=== PATIENT | male | born 1985 | race Caucasian/White ===

== ENCOUNTER 2022-11-10 07:56 | Observation (INO) ==
--- NOTE | 2022-10-16 14:22 | PAT Medication Instructions ---
Medication Instructions Date of Service October 16, 2022 Home Medications hydrocodone 5 mg-acetaminophen 325 mg tablet 1 tab PO Q6H PRN Take morning of surgery With a small sip of water, OTHERWISE NOTHING TO EAT OR DRINK AFTER MIDNIGHT: hydrocodone 5 mg-acetaminophen 325 mg tablet 1 tab PO Q6H PRN(if needed) Take evening before surgery hydrocodone 5 mg-acetaminophen 325 mg tablet 1 tab PO Q6H PRN(if needed) Other Notes If you have any questions please call us at [phone] or [phone] or [phone] or [phone]
--- NOTE | 2022-10-22 11:42 | Anesthesiology Consultation ---
Date of Service October 22, 2022 Assessment & Plan (1) Encounter for pre-operative examination: Chart Review Chart Review: Acceptable Risk for Surgery (pending PCP clearance 10/27/22 ) and Patient seen in Pre Admission Testing -Awaiting PCP clearance scheduled 10/27/22 (optimization note needs faxed to PCP regarding elevated bilirubin) Per PAT appt on 10/21/22, patient denies any recent travel or large group activities. Pt is NOT vaccinated for Covid. Will leave to surgeon's discretion if preop Covid testing needed. Educated on importance of using Covid precautions one week prior to surgery History Surgery Operation Date: 11/10/22 09:35 Proposed Procedures p C5-C7 Anterior Cervical Discectomy and Fusion with Possible C6 Corpectomy, Spinal cord Monitoring - Omar Baxter DO Height/Weight Height: 5 ft 7 in Weight: 98.6 kg Allergies Allergy/AdvReac Type Severity Reaction Status Date / Time Penicillins Allergy Severe HIVES, RASH Verified 10/16/22 11:35 adhesive Allergy Mild skin Verified 10/16/22 11:36 irritation nickel AdvReac Intermediate skin Verified 10/16/22 11:36 irritation Medications Home Medications Medication Instructions Recorded Confirmed Last Taken hydrocodone 5 mg-acetaminophen 325 1 tab PO Q6H PRN Pain 10/16/22 10/16/22 U nknown mg tablet Past Medical History Medical History (Updated 10/22/22 @ 19:23 by Marie Muller PA-C) Chronic back pain Degenerative disc disease Elevated liver enzymes 2004- hx of elevated LFTs and bilirubin Preop labs 10/22/22- show LFTs WNL; total bilirubin 2.2 Esophageal erosions - Hx --> ~- secondary to heartburn - has improved significantly with dietary changes- takes Rolaid PRN (improves heartburn). - No issues since that time- no repeat scope needed per patient History of COVID-27 June 2022. 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)- no residual issues per patient (occurred secon perry to viral infection) Lumbar stenosis (12/01/13) Mild heartburn Diet controlled Exercise / Class Metabolic Activity II 4-5 Yardwork/Stairs/Walk up hill (one flight of stairs - no chest pain or SOB ) Past Family History Family History Other No family history of adverse response to anesthesia Past Surgical History Surgical History History of cholecystectomy History of esophagogastroduodenoscopy (EGD) History of tonsillectomy History of tooth extraction Hx of microdiscectomy x2 lumbar S/P epidural steroid injection lumbar and cervical S/P lumbar fusion L5-S1 S/P shoulder surgery right bankart repair S/P shoulder surgery right shoulder reconstruction S/P tendon repair right bicep tendon repair Past Anesthesia History No Hx of Anesthesia Complications and No Family Hx of Anesthesia Complications History of PONV No Hx of PONV and No Hx of Motion Sickness STOP BANG Total 3 Social History Smoking Status: Current every day smoker tobacco type: cigarettes Smoking cigarettes per day: 20cig/day (trying to quit) Do You Dip or Chew Tobacco: No Hx Alcohol Use: Yes Alcohol type: beer and hard liquor alcohol intake frequency: holidays/special occasions only Hx Substance Use: Yes substance use type: marijuana Last Used Substance Other:: 10/12/22 Review of Systems Patient denies chest pain, shortness of breath, dyspnea on exertion, cough, wheezing, palpitations. No hx of seizures, stroke, [place], apnea/snoring. No hx of blood clots or blood transfusions Physical Exam Vital Signs VITALS BP 127/79 P 76 TEMP 98.6 SP02 98% RESP 16 Constitutional no acute distress ENMT Mouth: no TMJ clicking Thyromental Distance: > or= 3.5 Finger Breadths (3.5) Mallampati Class: I Full dentures top and bottom Neck neck extension not limited Tilts head to the left due to neck Respiratory normal respiratory effort; no respiratory distress Auscultation: lungs clear to auscultation bilaterally; no wheezes Cardiovascular Rate/Rhythm: regular rate and regular rhythm Heart Sounds: no murmur Vessels: no carotid bruit Musculoskeletal Spine: + pain with cervical ROM Extremities: extremities normal to inspection Psychiatric Orientation: alert Lab Results Anesthesia Preop Results Results Anesthesia Widget: WBC 6.84 K/ul (4.8-10.8) 10/22/22 Hgb 18.6 g/dl (14.0-18.0) H 10/22/22 Hct 52.2 % (40.1-51.0) H 10/22/22 Plt 266 K/uL (130-400) 10/22/22 Na 137 mmol/L (136-145) 10/22/22 K 3.9 mmol/L (3.5-5.1) 10/22/22 Cl 106 mmol/L (98-107) 10/22/22 CO2 22 mmol/L (21-32) 10/22/22 BUN 11 mg/dl (6-23) 10/22/22 Creat 1.01 mg/dl (0.6-1.4) 10/22/22 Glucose Level 94 mg/dl (70-99(Fasting)) 10/22/22 PT 10.6 Seconds (9.0-12.0) 10/22/22 PTT 30.2 Seconds (21.0-31.0) 10/22/22 INR 1.0 (0.9-1.1) 10/22/22 Urine Color Yellow 10/22/22 Urine Appearance Clear (Clear) 10/22/22 Urine pH 5.0 (4.5-7.5) 10/22/22 Urine Specific [facility] 1.007 (1.000-1.030) 10/22/22 Urine Protein Negative (Negative) 10/22/22 Urine Glucose (UA) Negative (Negative) 10/22/22 Urine Ketones Negative (Negative) 10/22/22 Urine Blood Negative (Negative) 10/22/22 Urine Nitrite Negative (Negative) 10/22/22 Urine Bilirubin Negative (Negative) 10/22/22 Urine Urobilinogen Negative (Negative) 10/22/22 Urine Leukocyte Esterase Negative (Negative) 10/22/22 Blood Type O Positive 10/22/22 Antibody Screen NEGATIVE 10/22/22 Testing Laboratory Results 10/22/22= AST: 15 ALT: 21 ALK PHOS: 62 TOTAL BILI: 2.2 Electrocardiogram Date: 10/22/22 NSR with sinus arrhythmia at 68bpm. Chest X-Ray Date: 10/22/22 Findings: + NAD
[~2022-11-10 07:56] MED LIST: ACETAMINOPHEN 500 MG TAB PO SCH; CLINDAMYCIN/D5W 900 MG/50 ML BAG IV SCH; CeleBREX 200 MG CAP PO SCH; GABAPENTIN 900 MG DOSE PO SCH; LR 15ML/HR IV SCH
[2022-11-10] MEDS ORDERED: MIDAZOLAM HCL 1 MG/ML 2ML VIAL ONE (08:37)
[2022-11-10] MEDS ORDERED: fentaNYL citrate 100 MCG/2 ML VIAL ONE ×2 (08:37→09:47)
[2022-11-10] MEDS ORDERED: ONDANSETRON INJ 2 MG/ML 2 ML VIAL IV PRN (09:07)
[2022-11-10] MEDS ORDERED: ATROPINE SULFATE 0.1 MG/ML 10ML SYR IV PRN (09:07)
[2022-11-10] MEDS ORDERED: ePHEDrine sulfate 50 MG/ML AMP IV PRN (09:07)
[2022-11-10] MEDS ORDERED: HYDROmorphone INJ 2 MG/ML SYR/VIAL IV PRN (09:07)
--- NOTE | 2022-11-10 09:15 | History & Physical Bridge Note ---
Date of Service November 10, 2022 History & Physical Bridge Note I have examined the patient, reviewed the History & Physical and in the interval since the performance of the History & Physical I have noted the following changes of clinical significance: no changes noted
--- NOTE | 2022-11-10 09:16 | History & Physical Report ---
Date of Service November 10, 2022 Assessment & Plan (1) Herniation of cervical intervertebral disc with radiculopathy: Plan: Anterior cervical discectomy and fusion C5-C7 with possible C6 corpectomy History of Present Illness Chief Complaint: Neck and arm pain Primary Care Provider: Gisel Trinidad This is a 37-year-old male presents with chronic persistent neck and arm pain after failed course of nonoperative care is here for surgical intervention. Allergies Allergy/AdvReac Type Severity Reaction Status Date / Time Penicillins Allergy Severe HIVES, RASH Verified 11/10/22 08:35 adhesive Allergy Mild skin Verified 11/10/22 08:35 irritation nickel AdvReac Intermediate skin Verified 11/10/22 08:35 irritation Home Medications Medication Instructions Recorded Confirmed Type hydrocodone 5 mg-acetaminophen 325 1 tab PO Q6H PRN Pain 10/16/22 11/10/22 History mg tablet Past Med/Surg History Medical History (Updated 11/10/22 @ 09:16 by Omar Baxter, ) Chronic back pain Degenerative disc disease Elevated liver enzymes 2004- hx of elevated LFTs and bilirubin Preop labs 10/22/22- show LFTs WNL; total bilirubin 2.2 Esophageal erosions - Hx --> ~- secondary to heartburn - has improved significantly with dietary changes- takes Rolaid PRN (improves heartburn). - No issues since that time- no repeat scope needed per patient History of COVID-27 June 2022. 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)- no residual issues per patient (occurred secondary to viral infection) Lumbar stenosis (12/01/13) Mild heartburn Diet controlled Surgical History History of cholecystectomy History of esophagogastroduodenoscopy (EGD) History of tonsillectomy History of tooth extraction Hx of microdiscectomy x2 lumbar S/P epidural steroid injection lumbar and cervical S/P lumbar fusion L5-S1 S/P shoulder surgery right bankart repair S/P shoulder surgery right shoulder reconstruction S/P tendon repair right bicep tendon repair Family History Other No family history of adverse response to anesthesia Social History Smoking Status: Current every day smoker Cigarettes Per Day: 20cig/day (trying to quit); Second Hand Exposure: No; Do You Dip or Chew Tobacco: No; Tobacco Cessation Education Requested by Patient: No Hx Alcohol Use: Yes Alcohol type: beer and hard liquor Hx Substance Use: Yes Last Used Substance Other:: 10/12/22 Preferred Language: Italian Communication Ability: Effective Research Environmental Engineer Required: No Beliefs That Will Affect Care: None Current Living Situation: Family and Significant Other Current Living Situation Comment: girlfriend + daughter Other Information That Helps Us Care for You: No Feels Safe at Home: Yes Safety Concerns: Feels Safe At This Time Assistive Devices: Denture - Upper, Denture - Lower and Glasses Physical Exam Physical Exam: Patient is alert and oriented Heart regular rhythm Lungs clear Results & Data Results & Data ([facility]) Vital Signs (Past 12 Hours) Vital Signs Temp Pulse Resp BP Pulse Ox O2 Del Method 11/10/22 08:30 36.9 C 69 20 151/100 H 97 Room Air
[2022-11-10] MEDS ORDERED: KETAMINE 50 MG/5 ML SYRINGE ONE (09:47)
[2022-11-10] MEDS ORDERED: DEXAMETHASONE SOD INJ 4 MG/ML VIAL ONE (10:07)
[2022-11-10] MEDS ORDERED: SUCCINYLCHOLINE CHLORIDE 20 MG/ML 10 ML VIAL IV ONE (10:07)
[2022-11-10] MEDS ORDERED: ONDANSETRON INJ 2 MG/ML 2 ML VIAL ONE (10:07)
[2022-11-10] MEDS ORDERED: PROPOFOL IV EMULSION 10 MG/ML 20 ML VIAL IV ONE (10:07)
[2022-11-10] MEDS ORDERED: FLOSEAL HEMOSTATIC MATRIX 10ML TOP ONE (10:16)
[2022-11-10] MEDS ORDERED: ROCURONIUM BROMIDE 10 MG/ML 5 ML VIAL IV ONE (10:18)
[2022-11-10] MEDS ORDERED: GLYCOPYRROLATE 0.2 MG/ML VIAL ONE (10:59)
[2022-11-10] MEDS ORDERED: NEOSTIGMINE METHYLSULFATE 1 MG/ML 10ML VIAL ONE (10:59)
--- NOTE | 2022-11-10 11:11 | Operative Report ---
Post Operative Report Pre & Post Diagnosis Operation Date: 11/10/22 09:35 Pre-Op Diagnosis: Cervical disc herniation with radiculopathy Post-Op Diagnosis: Same I identified the patient and participated in the time-out.: Yes Procedure Operation Date: 11/10/22 09:35 Actual Procedures #1 anterior cervical discectomy with bilateral foraminotomies C5-C6 C6-C7. #2 anterior cervical arthrodesis C5-C6 C6-C7. #3 placement of Spira 8 mm cage filled with I factor C5-C6 C6-C7. #4 placement of cage plate and screws across C5-C7. Surgeon Omar Baxter, Data Control Assistant None Estimated Blood Loss 10 Findings Consistent with Post-Op Diagnosis Specimens None Indications This is a 37-year-old male who presents above-mentioned diagnosis after failed course of nonoperative care is here for surgical invention. Description of Procedure Patient met with identified informed consent obtained. 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 All bony prominences well-padded eyes inspected to ensure no external pressure placed upon them. This point the anterior cervical spine was prepped and draped no sterile fashion. The assistance of fluoroscopy identified see 6 vertebral body and a transverse inc ision was placed along the right anterior aspect of the cervical spine overlying this region. Blunt dissection with assistance of bipolar electrocautery was then performed down to and exposing the anterior cervical spine from C5-C7. A self-retaining retractors placed. Then performed a complete discectomy of C5-C6 out to the uncovertebral joints bilaterally. Show Low distracting pins utilized to assist in visualization. Removed all posterior annular fibers longitudinal ligament bilateral foraminotomies performed and a 8 mm spiral cage filled I factor tapped in position. Then proceeded to see 6 C7. Again complete discectomy performed out to the uncovertebral's bilaterally. Show Low distracting pins again utilized. Removed all posterior annular fibers longitudinal ligament bilateral foraminotomies performed addressing all neural compression and disc material. Endplates burred to subcortical bleeding bone and a 8 mm spiral cage filled with I factor tapped in position. Distracting apparatus was removed all anterior osteophytes produce with cortical surface and a K2 M plate and screws applied with the assistance of fluoroscopy. The incision was then copiously irrigated explored to ensure no damage to surrounding structures or remaining bleeding. 10 round MISTY drain inserted. The incision was then closed with 2 Vicryl in the fascia and 4 Monocryl for final skin closure. Steri-Strip sterile dressings placed. Patient waken taken to PACU in stable condition. Please note spinal cord monitoring was utilized at the procedure no changes noted. I attest to the content of the Intraoperative Record and any orders documented therein. Any exceptions are noted below.
[2022-11-10] MEDS: fentaNYL citrate 100 MCG/2 ML VIAL IV PRN ×4 (11:29→11:44)
--- NOTE | 2022-11-10 11:58 | Fluoroscopy Report ---
FL cervical 2-3V CLINICAL HISTORY: ACDF C5-C7/CORPECTOMY C6 TECHNIQUE: 4 views were obtained with the C-arm in the OR with the above procedure. Total fluoroscopy time was 13.1 seconds. Radiation dose was 1.22 mGy. Comparison: None available at the time of this dictation. FINDINGS/IMPRESSION: Intraoperative images were obtained of ACDF of C5-C7. Please correlate with intraoperative fluoroscopy and operative report. ACT 112: Negative or not required by law. Electronically signed by: Lester Baer M.D. 11/10/2022 11:56 AM
--- NOTE | 2022-11-10 12:16 | Anesthesiology Progress Note ---
Date of Service November 10, 2022 Anesthesia Post Procedure Vital Signs Vital Signs: Temp Pulse Pulse Resp BP Pulse Ox O2 Del Method 11/10/22 12:05 97.3 F L 68 12 132/97 96 Nasal Cannula 11/10/22 11:55 68 12 142/83 H 97 Nasal Cannula 11/10/22 11:45 75 12 142/92 H 99 Nasal Cannula 11/10/22 11:35 69 15 127/85 100 Oxymask 11/10/22 11:25 75 20 141/88 H 100 Oxymask 11/10/22 11:19 96.8 F L 79 12 140/100 100 Oxymask 11/10/22 08:30 98.4 F 69 20 151/100 H 97 Room Air O2 Flow Rate 11/10/22 12:05 2 11/10/22 11:55 2 11/10/22 11:45 2 11/10/22 11:35 4 11/10/22 11:25 4 11/10/22 11:19 6 11/10/22 08:30 Pain Intensity Bilateral Neck: Pain Intensity: 3 Transfer of Care Handoff Completed per policy Notes Mental Status: alert / awake / arousable and participated in evaluation Patient Amnestic to Procedure: Yes Nausea / Vomiting: adequately controlled Pain: adequately controlled Airway Patency, RR, SpO2: stable & adequate BP & HR: stable & adequate Hydration State: stable & adequate Anesthetic Complications: no major complications apparent and Pt Satisfied with anesthetic care
[2022-11-10] MEDS ORDERED: RACEPINEPHRINE 2.25% NEBU SOLN 0.5 ML VIAL INH PRN (12:36)
[2022-11-10] MEDS ORDERED: ACETAMINOPHEN 1,000 MG/100 ML VIAL IV PRN (12:36)
[2022-11-10] MEDS ORDERED: HYDROmorphone INJ 0.5 MG/0.5 ML SYR IV PRN ×2 (12:36)
[2022-11-10] MEDS ORDERED: traMADol HCL 50 MG TABLET PO PRN ×2 (12:36)
[2022-11-10] MEDS ORDERED: diphenhydrAMINE Capsule 25 MG CAP PO PRN (12:36)
[2022-11-10] MEDS ORDERED: ALUMINUM/MAGNESIUM SUSP 30 ML UDC PO PRN (12:36)
[2022-11-10] MEDS ORDERED: dexAMETHasone 8 MG in SYRINGE 0 ML IV PRN (12:36)
[2022-11-10] MEDS ORDERED: oxyCODONE HCL IR 5 MG TAB (IMMEDIATE RELEASE) PO PRN (12:36)
[2022-11-10] MEDS: SODIUM CHLORIDE 0.9% 1000ML 1,000 ML IV SCH (13:59)
[2022-11-10] MEDS: oxyCODONE HCL IR 5 MG TAB (IMMEDIATE RELEASE) PO PRN (21:16)
[2022-11-11] MEDS: SODIUM CHLORIDE 0.9% 1000ML 1,000 ML IV SCH (00:13)
[2022-11-11] MEDS: oxyCODONE HCL IR 5 MG TAB (IMMEDIATE RELEASE) PO PRN ×3 (01:56→10:08)
[2022-11-11] MEDS ORDERED: dexAMETHasone 6 MG in SYRINGE 0 ML IV SCH (09:00)
--- NOTE | 2022-11-11 11:37 | Discharge Summary ---
Date of Service November 11, 2022 Admission HPI Per Admitting Provider This is a 37-year-old male presents with chronic persistent neck and arm pain after failed course of nonoperative care is here for surgical intervention. Principal Diagnosis Cervical disc herniation with radiculopathy Discharge Data Allergies Allergy/AdvReac Type Severity Reaction Status Date / Time Penicillins Allergy Severe HIVES, RASH Verified 11/10/22 08:35 adhesive Allergy Mild skin Verified 11/10/22 08:35 irritation nickel AdvReac Intermediate skin Verified 11/10/22 08:35 irritation Procedures Performed Operation Date: 11/10/22 09:35 Actual Procedures p C5-C7 Anterior Cervical Discectomy and Fusion, Anterior Plate and Screw Fixation, Spinal cord Monitoring(Not Applicable) - Omar Baxter DO Ordered Studies 11/10/22 09:35 FL cervical 2-3V Routine Hospital Course (1) Herniation of cervical intervertebral disc with radiculopathy: Patient with anterior cervical discectomy fusion [place] posting orthopedic for postop labor postop day 1 he was up and ambulating. Swallowing well. Marked improvement of his arm pain. Excellent strength testing. MISTY drain decreased appropriate. Separately discharged home. Discharge orders instructions from the chart for further review. Total Time Total Time Spent Total Time Spent (In Minutes): 20 minutes Discharge Plan Discharge Items Patient Disposition: Home - Self-Care Reason For Visit: Spinal Stenosis, Cervical Region Discharge Diagnosis: Cervical stenosis with radiculopathy Activity: As commented below Non-emergency contact: Primary Care Provider Call non-emergency contact if: you have any medication questions Follow-up/Referrals: Gisel Trinidad M.D. [Primary Care Provider] - Diet: Regular Addtl Attending Provider Instructions: ACTIVITY RECOMMENDATIONS: SELF CARE INSTRUCTIONS AFTER CERVICAL FUSIONS 1. No smoking. Smoking drastically decreases the chance of a solid fusion. 2. No bending, lifting more than 5 pounds, or twisting (roll like a log when turning in bed). 3. You may shower 3 days after surgery. Thoroughly dry wound. Do not soak in the tub. 4. Cervical collar: Must be worn at all times including sleeping. You may remove the brace only to bath, eat and if you are sitting in a recliner. 5. Please walk as much as you can for exercise. Gradually increase the distance that you walk as your endurance increases. SPECIAL CARE INSTRUCTIONS: VERY IMPORTANT TO READ AND REVIEW A. Do not take any anti-inflammatory medications (i.e. Indocin, Advil, Aspirin, Naprosyn, Aleve, Motrin, etc.) as these may inhibit the chance of a solid fusion. Tylenol is okay to take. B. Your surgical incision has been closed with a cosmetic suture under the skin that will dissolve in about 6 weeks. In 14 days, you can use a pair of clean scissors and cut the suture that is left outside of the skin at the ends of your incision. C. Complications are uncommon, but please contact us if you have any signs or symptoms of: 1. wound infection (fever higher than 102.5 degrees F, redness, separation of wound, drainage, or increasing pain from the incision) 2. blood clots in legs (pain, swelling, redness and warmth in legs) 3. urinary tract infection (fever higher than 102.5 degrees, burning upon urination or increased frequency of urination) 4. nerve problems (inability to walk on your toes or heels, numbness, loss of bowel or bladder control) 5. any other symptoms that concern you. D. Please call the office at if you have any concerns or questions about your operation or recovery. MANAGING PAIN AFTER SPINAL SURGERY 1. Narcotic medication is intended for short-term use and will be provided for surgical pain. Surgical pain usually lasts for a period of 4-6 weeks. Narcotic medication includes Percocet, Vicodin, Darvocet, Tylenol #3 or Lortab. 2. Longer-term pain is more appropriately treated with non-narcotic medication such as Tylenol ES. 3. Muscle spasm is not appropriately treated with narcotics. Muscle relaxers such as Soma, Flexeril or Skelaxin can be used along with Tylenol ES. 4. Remember that we all live with some "aches and pains". This is not unusual or uncommon after an injury or as we get older. 5. We will provide appropriate medication within the normal guidelines of their prescribed use. We will also be very cautious and aware of potential abuse and extended duration of patients' medication needs. 6. Please allow 2-3 days to process refills. Prescriptions will not be mailed but must be picked up at the office. FOLLOW UP VISIT: Keep your scheduled follow-up appointment. Any questions, please call the office at . Pending Studies at Discharge: No Stand-Alone Forms: [facility], Smoking Cessation Medications and DC Order Prescriptions: New tramadol 50 mg tablet 50 mg PO Q6H PRN (Reason: pain, moderate) Qty: 30 0RF oxycodone 5 mg tablet 5 mg PO Q6H PRN (Reason: pain, severe) Qty: 20 0RF Continued hydrocodone-acetaminophen 5-325 mg Tablet 1 tab PO Q6H PRN (Reason: Pain) Discharge Orders: Discharge Order (Routine); Ordered 11/11/22 Ordered By: Omar Baxter Admission Data Admit Date/Time: 11/10/22 11:16 Attending Provider: Omar Baxter Admit Provider: Omar Baxter Primary Care Provider: Gisel Trinidad
== END 2022-11-11 12:52 | disposition home or self-care (01) ==
LOC: ASU 07:56 → INTOOBSV 11:16 → 3E 11:16